=== PATIENT | male | born 1975 | race African-American/Black ===

== ENCOUNTER 2021-03-22 09:30 | Emergency (ER) | payer SELFPAY ==
[~2021-03-22] VITALS: Ht 177.8 cm; Wt 91.0 kg
[2021-03-22] MEDS ORDERED: AMOX-424 MT (09:43)
[2021-03-22] MEDS ORDERED: IBUP-2030 MT (09:44)
[2021-03-22] MEDS ORDERED: ACETAMINOPHEN 325MG TABLET PO ONE (09:45)
[2021-03-22] MEDS ORDERED: CHLO473M2 MT (09:45)
[2021-03-22] MEDS ORDERED: IBUPROFEN 600MG TABLET PO ONE (09:45)
[2021-03-22 10:00] VITALS: BP 112/74
== END 2021-03-22 10:31 | disposition home or self-care (01) ==
LOC: ER 10:28
DX: K08.89 Other specified disorders of teeth and supporting structures (principal); K04.7 Periapical abscess without sinus; K02.9 Dental caries, unspecified
CPT/HCPCS: 99283

== ENCOUNTER 2022-06-21 10:12 | Emergency (ER) | payer MEDICAID ==
[~2022-06-21] VITALS: Ht 180.3 cm; Wt 86.0 kg
[~2022-06-21 10:12] MED LIST: AMOX-424 MT; CHLO473M2 MT; IBUP-2030 MT
[2022-06-21 10:16] VITALS: BP 133/74
[2022-06-21 12:57] LABS: BASOPHILS % 0.6 % (0.0-2.0); EOSINOPHILS % 5.6 % (0.0-5.0); HEMATOCRIT. 42.5 % (42.0-52.0); HEMOGLOBIN. 14.3 g/dL (14.0-18.0); MEAN CORPUSCULAR HEMOGLOBIN 29.7 pg (28.0-32.0); MEAN CORPUSCULAR VOLUME 88.4 fL (80.0-94.0); MEAN PLATELET VOLUME 8.4 fl (7.4-10.4); MONOCYTES % 10.7 % (2.0-8.0); NEUTROPHILS % 50.1 % (40.0-76.0); PLATELET 197 x1000/uL (130-400); RED CELL DISTRIBUTION WIDTH 14.2 % (11.6-14.6)
[2022-06-21 14:10] LABS: CHLORIDE 111 mEq/L (98-107)
== END 2022-06-21 15:05 | disposition home or self-care (01) ==
LOC: ER 10:12
DX: K08.89 Other specified disorders of teeth and supporting structures (principal); F17.210 Nicotine dependence, cigarettes, uncomplicated
CPT/HCPCS: 36415; 71045; 80053; 84484; 85025; 93005; 99285